=== PATIENT | female | born 1950 | race Caucasian/White ===

== ENCOUNTER → 2017-04-12 | Outpatient (CLI) | payer MEDICARE ==
[~2017-04-12] VITALS: Ht 154.9 cm; Wt 109.3 kg
[~2017-04-12] MED LIST: BIOTIN5000 MCG PO; DIOVAN40 MG PO; ESCITALOPRAM OX10 MG PO; FISH OIL 1,2001 CAP PO; LEVOTHYROXINE75 MCG PO; LOPID600 MG PO; VALTREX500 MG PO; VIT B12 PO
== END | disposition home or self-care (01) ==
LOC: CSSDAY 10:00
DX: K50.90 Crohn's disease, unspecified, without complications (principal); Z79.899 Other long term (current) drug therapy
CPT/HCPCS: 96413; 96415; J1745